=== PATIENT | female | born 1970 | race Caucasian/White ===

== ENCOUNTER → 2016-05-26 | Outpatient (CLI) | payer BC | END | disposition home or self-care (01) | LOC: CFH 16:08 | PROVIDERS: ATTEND Genetic Counselor, MS | DX: Z12.31 Encounter for screening mammogram for malignant neoplasm of breast (principal) | CPT/HCPCS: G0202 ==

== ENCOUNTER → 2017-10-29 | Outpatient (CLI) | payer BC | END | disposition home or self-care (01) | LOC: CFH 07:33 | PROVIDERS: ATTEND Nurse Practitioner Family | DX: K76.0 Fatty (change of) liver, not elsewhere classified (principal) | CPT/HCPCS: 76700 ==

== ENCOUNTER 2019-02-22 08:09 | Outpatient (CLI) | payer BC | END 2019-02-22 23:59 | disposition home or self-care (01) | LOC: CFH 08:09 | PROVIDERS: ATTEND Genetic Counselor, MS | DX: N63.23 Unspecified lump in the left breast, lower outer quadrant (principal); R92.2 Inconclusive mammogram | CPT/HCPCS: 76642; 77066 ==

== ENCOUNTER 2019-03-18 08:17 | Outpatient (CLI) | payer BC | END 2019-03-18 23:59 | disposition home or self-care (01) | LOC: CFH 08:17 | PROVIDERS: ATTEND Genetic Counselor, MS | DX: N63.23 Unspecified lump in the left breast, lower outer quadrant (principal) | CPT/HCPCS: 76642 ==

== ENCOUNTER 2020-04-19 09:15 | Outpatient (CLI) | payer BC | END 2020-04-19 23:59 | disposition home or self-care (01) | LOC: CFH 09:15 | PROVIDERS: ATTEND Nurse Practitioner Family | DX: Z12.31 Encounter for screening mammogram for malignant neoplasm of breast (principal) | CPT/HCPCS: 77063; 77067 ==